=== PATIENT | female | born 1990 | race African-American/Black ===

== ENCOUNTER 2022-05-25 18:16 | Emergency (ER) | payer SELFPAY ==
[2022-05-25 18:19] VITALS: BP 134/78; PULSE 80; RESP 18; TEMP 36.4; O2SAT 100
--- NOTE | 2022-05-25 20:29 | ED.GENADULT ---
HPI - General Adult General Chief complaint: Dental/Oral <GEOVANNA Mera Last Filed: 05/25/22 20:43> Stated complaint: throat pain <GEOVANNA Mera Last Filed: 05/25/22 20:43> Time Seen by Provider: 05/25/22 20:22 <GEOVANNA Mera Last Filed: 05/25/22 20:43> Source: patient <GEOVANNA Mera Last Filed: 05/25/22 20:43> Mode of arrival: ambulatory <GEOVANNA Mera Filed: 05/25/22 20:43> Limitations: no limitations <GEOVANNA Mera Last Filed: 05/25/22 20:43> History of Present Illness HPI narrative: Patient is a 31 y/o female who presents to the ED with c/o sore throat. Patient reports she was around several family members last weekend and developed some cold symptoms early this week, including sore throat, congestion, rhinorrhea, cough. She states most of her symptoms have resolved, but the sore throat has lingered. She has been taking [id number] cough and cold medicines. Denies any difficulty breathing, chest pain, difficulty swallowing, fevers, swelling of throat or tongue, abdominal pain, nausea, vomiting. Patient recently tested negative for COVID-19 through her work. She is wanting to be tested for strep throat. <GOEVANNA Mera Last Filed: 05/25/22 20:43> Review of Systems Review of Systems: CONSTITUTIONAL: Denies fever, chills, or sweats. ENT: Reports sore throat. Denies rhinorrhea, congestion. CARDIOVASCULAR: Denies chest pain. RESPIRATORY: Denies cough or dyspnea. GASTROINTESTINAL: Denies abdominal pain, nausea, vomiting, or diarrhea. <GEOVANNA Mera Last Filed: 05/25/22 20:43> All systems reviewed & are unremarkable except as noted in HPI and below <GEOVANNA Mera Last Filed: 05/25/22 20:43> PMFSH Past Medical History Medical History: Medical History Asthma <Kavitha Goodwin PA-C - Last Filed: 05/25/22 20:43> Surgical History Surgical History: Surgical History (Updated 05/25/22 @ 20:33 by Kavitha Goodwin PA-C) No pertinent past surgical history <Kavitha Goodwin PA-C - Last Filed: 05/25/22 20:43> Social History Social History: Social History (Updated 05/25/22 @ 20:33 by Kavitha Goodwin PA-C) Smoking status: Never smoker <Kavitha Goodwin PA-C - Last Filed: 05/25/22 20:43> Exam Narrative: GENERAL: Well appearing, morbidly obese, non-toxic, in no acute distress. HEAD: Normocephalic, atraumatic. ENT: PERRLA/EOMI. Conjunctive clear bilaterally. Nose normal, no drainage. Minimal posterior pharynx erythema, no tonsillar hypertrophy or exudate. Uvula midline. No dental trauma, caries, focal abscess. NECK: Supple. No significant anterior or posterior adenopathy, no masses. RESPIRATORY: Airway patent, respirations nonlabored. Clear to auscultation bilaterally, no rales, rhonchi, wheezing. CARDIOVASCULAR: Regular rate and rhythm without murmurs, rubs, or gallops. Radial pulses 2+ and equal bilaterally. MUSCULOSKELETAL: Moves all extremities. Strength/ROM intact without gross deformities. SKIN: Warm, dry, normal color. No rashes. NEURO: A&O X3. Speech clear. Cranial nerves II-XII grossly intact. Steady gait. No ataxic movements. PSYCHIATRIC: Appropriate mood and affect. Normal interaction. <Kavitha Goodwin PA-C - Last Filed: 05/25/22 20:43> Course [employer]/PA Physician Supervision For this encounter, I have reviewed the mid-level provider documentation, treatment plan and medical decision making. I have had evtk-nd-[id number] time with the patient. This is a very pleasant lady who was nontoxic-appearing. I agree with and scada operator treatment disposition. <Marc Arreaga MD - Last Filed: 05/28/22 16:07> Vital Signs Vital signs: Vital Signs Temperature 97.6 F 05/25/22 18:19 Pulse Rate 80 05/25/22 18:19 Respiratory Rate 18
== END 2022-05-25 20:47 | disposition home or self-care (01) ==
PROVIDERS: Emergency Provider Emergency Medicine
DX: J02.9 Acute pharyngitis, unspecified (principal); J45.909 Unspecified asthma, uncomplicated
CPT/HCPCS: 87081; 87880; 99283